=== PATIENT | male | born 1945 | race Caucasian/White ===

== ENCOUNTER 2017-01-01 14:16 | Emergency (ER) | payer MEDICARE ==
[2017-01-01 15:38] VITALS: BP 100/63
[2017-01-01] MEDS ORDERED: methylPREDNISolone 125 MG* 2 ML VIAL IM ONE (15:47)
--- NOTE | 2017-01-01 15:54 | UC ---
Allergic Reaction HPI - HPI Summary HPI Summary: patient was spreading fertilizer on his lawn and then developed itching redness , woke up the next morning with the right swollen hand, now the left is swelling as well., redness extends dwon both wrists - History of Current Complaint Chief Complaint: [employer] Stated Complaint: RIGHT HAND SWELLLING Time Seen by Provider: 01/01/17 15:33 Hx Obtained From: Patient Onset/Duration: Sudden Onset, Lasting Days Severity Initially: Moderate Severity Currently: Moderate Location: Diffuse - hands and wrists Character: Swelling, Pruritus, Hives Aggrevating Factor(s): Heat Alleviating Factor(s): Cold - Allergies/Home Medications Allergies/Adverse Reactions: Allergies Allergy/AdvReac Type Severity Reaction Status Date / Time No Known Allergies Allergy Verified 01/01/17 15:38 Home Medications: Home Medications Amlodipine Besylate [Norvasc 10 mg tab] 10 mg PO DAILY 01/01/17 [History Confirmed 01/01/17] Diphenhydramine HCl [Benadryl Allergy 25 MG CAP] 25 mg PO PRN 01/01/17 [History] Metformin HCl [Metformin HCl ER] 500 mg PO BID 01/01/17 [History Confirmed 01/01] Pioglitazone HCl [Actos] 30 mg PO DAILY 01/01/17 [History Confirmed 01/01/17] Simvastatin TAB(NF) [Zocor(NF)] 20 mg PO 1700 01/01/17 [History Confirmed ] Valsartan/HCTZ 320/25(NF) [Diovan Hct 320/25(NF)] 1 tab PO DAILY 01/01/17 [ History Confirmed 01/01/17] PMH/Surg Hx/FS Hx/Imm Hx Previously Healthy: Yes Endocrine History Of: Reports: Diabetes - Type II Cardiovascular History Of: Reports: Hypertension - Surgical History Surgical History: None - Family History Known Family History: Positive: Hypertension - Social History Alcohol Use: None Substance Use Type: None Smoking Status (MU): Never Smoked Tobacco Review of Systems Skin: Rash Eyes: Negative ENT: Negative Respiratory: Negative Cardiovascular: Negative Gastrointestinal: Negative Genitourinary: Negative Motor: Negative Neurovascular: Negative Musculoskeletal: Edema Neurological: Negative Psychological: Negative All Other Systems Reviewed And Are Negative: Yes Physical Exam Triage Information Reviewed: Yes Appearance: Well-Appearing, Well-Nourished, Pain Distress Vital Signs: Initial Vital Signs Temp 97.9 F 01/01/17 15:31 Pulse 88 01/01/17 15:31 Resp 16 01/01/17 15:31 BP 100/63 01/01/17 15:31 Pulse Ox 94 01/01/17 15:31 Vital Signs Reviewed: Yes Eye Exam: Normal Eyes: Positive: Conjunctiva Clear ENT Exam: Normal ENT: Positive: Hearing grossly normal, Pharynx normal, TMs normal Dental Exam: Normal Neck exam: Normal Respiratory Exam: Normal Cardiovascular Exam: Normal Abdominal Exam: Normal Bowel Sounds: Positive: Present Musculoskeletal Exam: Normal Neurological Exam: Normal Psychological Exam: Normal Skin: Positive: Other - erythema, and swelling Allergic Reaction Course/Dx - Course Course Of Treatment: hx obtained, exam performed, meds reviewed, solumedrol IM given and prednisone prescirbe.d - Differential Dx/Diagnosis Differential Diagnosis/HQI/PQRI: Angioedema, Local Allergic Reaction, Urticaria Provider Diagnoses: Allergic reaction to pawn fertilizer Discharge - Discharge Plan Condition: Stable Disposition: HOME Prescriptions: predniSONE TAB* [Deltasone TAB*] 40 mg PO DAILY #14 tab Patient Education Materials: General Allergic Reaction (ED) Additional Instructions: 1. start the prednisone tomorrow 2. COntinue with benadryl as needed for itching. 3. If you develope any worsening symtpoms including and Shortness of breath follow up in the ER.
== END 2017-01-01 16:21 | disposition home or self-care (01) ==
LOC: UCCORT 14:16
DX: T78.40XA Allergy, unspecified, initial encounter (principal); E11.9 Type 2 diabetes mellitus without complications; I10 Essential (primary) hypertension; Z79.4 Long term (current) use of insulin
CPT/HCPCS: 96372; 99212; G0463; J2930